=== PATIENT | male | born 1945 | race Caucasian/White ===

== ENCOUNTER 2020-03-11 17:00 | Emergency (ER) | payer MEDICARE, OTHER ==
[2020-03-11] MEDS ORDERED: SODIUM CHLORIDE 0.9% 1,000 ML IV STA (17:22)
--- NOTE | 2020-03-11 17:51 | ED Physician Documentation ---
History of Present Illness - Stated complaint Stated Complaint: RT HAND WEAKNESS - Chief complaint Chief Complaint: Neuro - History obtained from History obtained from: Patient, Family - Additonal information Additional information: Patient comes emergency department complaining of progressive weakness in his fingers over the last several days. He states he started with a mild sensation of numbness in his fourth and fifth right digits but that he then noticed that he could not oppose his fingertips to his thumbs to his thumb without flexing hard at the wrist. He denies any pain in the wrist. He does have some numbness extending over the distal ulna but states that the sense of weakness and numbness and is there. He denies any other focal neurologic deficits. 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 Patient denies any headaches or visual changes. No recent injuries. He does use a walker and is right side dominant. No other complaints at this time. Review of Systems Ten Systems: 10 systems reviewed and negative Constitutional: reports: Reviewed and negative Eyes: reports: Reviewed and negative Ears: reports: Reviewed and negative Nose: reports: Reviewed and negative Throat: reports: Reviewed and negative Cardiac: reports: Reviewed and negative Respiratory: reports: Reviewed and negative GI: reports: Reviewed and negative : reports: Reviewed and negative Skin: reports: Reviewed and negative Musculoskeletal: reports: Reviewed and negative Neurologic: reports: Focal weakness, Numbness Psychiatric: reports: Reviewed and negative Endocrine: reports: Reviewed and negative Immunocompromised: reports: Reviewed and negative PD PAST MEDICAL HISTORY - Past Medical History Cardiovascular: Hypertension, High cholesterol Respiratory: None Endocrine/Autoimmune: None, Type 2 diabetes GI: None : None HEENT: Chronic vision loss, Other Psych: None Musculoskeletal: None Derm: None - 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 HEENT: Other - Present Medications Home Medications: Ambulatory Orders Medication Instructions Recorded Confirmed Atorvastatin Calcium [Lipitor] 20 mg PO DAILY 11/27/13 05/28/14 Cholecalciferol (Vitd3)/Vit K2 [D3 1 ea PO BID 11/27/13 05/28/14 + K2 Dots 1,000 Units Tab] Ferrous Sulfate [Iron Supplement] 325 mg PO DAILY 11/27/13 05/28/14 Lisinopril 10 mg PO DAILY 11/27/13 05/28/14 Metformin HCl 1,000 mg PO BID 11/27/13 05/28/14 Multivitamin [Multi-Vitamin Daily] 1 ea PO BID 11/27/13 05/28/14 [place]-3 Fatty Acids/Fish Oil [Fish 1 each PO BID 11/27/13 05/28/14 Oil Softgel] Saw [place] Fruit/Zinc Picoli 1 each PO BID 11/27/13 05/28/14 [Saw [place] Capsule] - Allergies Allergies/Adverse Reactions: Allergies Allergy/AdvReac Type Severity Reaction Status Date / Time Penicillins Allergy Severe Respiratory Verified 03/11/20 17:03 insect bites AdvReac Mild Itching Uncoded 11/27/13 15:02 PD ED PE NORMAL - Vitals Vital signs reviewed: Yes - General General: Alert and oriented X 3, No acute distress, Well developed/nourished - HEENT HEENT: Atraumatic, PERRL, EOMI, Moist mucous membranes - Neck Neck: Supple, no meningeal sign - Cardiac Cardiac: RRR, No murmur - Respiratory Respiratory: No respiratory distress, Clear bilaterally - Abdomen Abdomen: Soft, Non distended - Back Back: No spinal TTP - Derm Derm: Normal color, Warm and dry, No rash - Extremities Extremities: No deformity, Other (Chronic lower extremity edema Symmetrically) - Neuro Neuro: Alert and oriented X 3, Normal speech, Other (5+ 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 Patient automatically fully flex his wrist to help achieve medical sales representative strength. 5+ pincher strength from thumb to all fingers bilaterally, but weaker on R. Equal and 5+ strength elbow and wrist flexion bilaterally.). 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 (Mild left facial droop.) - Psych Psych: Normal mood, Normal affect Results - Vitals Vitals: Vital Signs - 24 hr 03/11/20 03/11/20 03/11/20 17:04 17:54 18:38 Temperature 37 C Heart Rate 58 L 64 60 Respiratory 18 16 12 Rate Blood Pressure 149/56 H 151/75 H 135/63 H O2 Saturation 98 100 100 Oxygen O2 Source Room air - Labs Labs: Laboratory Tests 03/11/20 03/11/20 03/11/20 17:55 17:55 17:55 WBC 5.4 RBC 4.21 L Hgb 13.3 L Hct 38.9 L MCV 92.4 MCH 31.6 H MCHC 34.2 RDW 13.1 Plt Count 253 MPV 8.8 Neut # (Auto) 4.0 Lymph # (Auto) 0.6 L Charles # (Auto) 0.5 Eos # (Auto) 0.2 Baso # (Auto) 0.0 Absolute Nucleated RBC 0.00 Nucleated RBC % 0.0 PT 11.8 INR 1.1 Sodium 133 L Potassium 4.4 Chloride 100 L Carbon Dioxide 21 Anion Gap 12.0 BUN 98 H* Creatinine 2.5 H Estimated GFR (MDRD) 26 L Glucose 168 H Calcium 9.0 Total Bilirubin 1.0 AST 24 ALT 27 Alkaline Phosphatase 124 H Total Protein 7.4 Albumin 3.2 Globulin 4.2 Albumin/Globulin Ratio 0.8 L Lipase 102 H - Rads (name of study) CT head Radiology: Final report received, EMP read indepedently, See rad report (NAD) PD MEDICAL DECISION MAKING - ED course Complexity details: reviewed results, re-evaluated patient, considered differential, d/w patient, d/w family ED course: Patient was worked up with labs and CT scan of the head. Given the progressive nature of his symptoms over some days, as well as the very sharply demarcated cessation of symptoms from the wrist and proximally, I suspected that it was not a stroke that had caused the patient's symptoms. His work-up was unremarkable in terms of cause of the sx. Pt has been getting lab draws twice weekly to monitor his renal function on diuretic treatment, and will continue to have this monitored on an outpatient basis. The pt is advised to follow up with his PCP regarding the neuropraxia in his hand/fingers. 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 No emergent findings have been found on your labs or CT to explain the weakness in your hand. Most likely, the symptoms are secondary to a nerve compression, possibly from using your walker. Please follow-up with your primary care physician to discuss what can be done to remedy the situation. Please continue your visits with wound care for your lower leg swelling and weeping. Discharge Date/Time: 03/11/20 19:14
[2020-03-11 18:02] LABS: BASOPHILS % (AUTO) 0.6 %; EOSINOPHILS # (AUTO) 0.2 10^3/uL (0.0-0.7); HGB - HEMOGLOBIN 13.3 g/dL (14.0-18.0); LYMPHOCYTES # (AUTO) 0.6 10^3/uL (1.5-3.5); LYMPHOCYTES % (AUTO) 11.6 %; MEAN CORPUSCULAR HEMOGLOBIN 31.6 pg (27.0-31.0); MEAN CORPUSCULAR HGB CONC 34.2 g/dL (32.0-36.0); MEAN CORPUSCULAR VOLUME 92.4 fL (80.0-94.0); MEAN PLATELET VOLUME 8.8 fL (7.4-11.4); MONOCYTES # (AUTO) 0.5 10^3/uL (0.0-1.0); MONOCYTES % (AUTO) 9.4 %; PLT - PLATELET COUNT 253 10^3/uL (130-450); RED BLOOD COUNT 4.21 10^6/uL (4.70-6.10); RED CELL DISTRIBUTION WIDTH 13.1 % (12.0-15.0); WHITE BLOOD COUNT 5.4 x10^3/uL (4.8-10.8)
[2020-03-11 18:08] LABS: INR 1.1 (0.8-1.2); PT - PROTHROMBIN TIME 11.8 secs (9.9-12.6)
[2020-03-11 18:17] LABS: ALBUMIN 3.2 g/dL (3.2-5.5); ALBUMIN/GLOBULIN RATIO 0.8 (1.0-2.2); CREATININE 2.5 mg/dL (0.6-1.2); TOTAL PROTEIN 7.4 g/dL (6.7-8.2)
--- NOTE | 2020-03-11 18:17 | CT Report ---
PROCEDURE: HEAD WO INDICATIONS: R hand weakness TECHNIQUE: Noncontrast 4.5 mm thick angled axial sections acquired from the foramen magnum to the vertex. For r adiation dose reduction, the following was used: automated exposure control, adjustment of mA and/or kV according to patient size. COMPARISON: None. FINDINGS: Image quality: Excellent. CSF spaces: Basal cisterns are patent. No extra-axial fluid collections. Ventricles are normal in size and shape. Brain: No midline shift. No intracranial masses or hemorrhage. Damon-white matter interface is norm al. Skull and face: Calvarium and visualized facial bones are intact, without suspicious lesions. Sinuses: Visualized sinuses and mastoids are clear. IMPRESSION: No significant intracranial abnormality is seen. No intracranial hemorrhage is seen. If there is strong clinical concern for a stroke, please consider a dedicated brain MRI for further e valuation (assuming that there is no contraindication to MRI). Reviewed by: Shaun Infante MD on 03/11/2020 5:15 PM JERAMY Approved by: Shaun Infante MD on 03/11/2020 5:15 PM JERAMY Station ID: [id number]
[2020-03-11 18:39] VITALS: BP 135/63
== END 2020-03-11 19:14 | disposition home or self-care (01) ==
LOC: ED 17:00
DX: S44.92XA Injury of unspecified nerve at shoulder and upper arm level, left arm, initial encounter (principal); X58.XXXA Exposure to other specified factors, initial encounter; I10 Essential (primary) hypertension; E11.9 Type 2 diabetes mellitus without complications; Z79.84 Long term (current) use of oral hypoglycemic drugs
CPT/HCPCS: 36415; 70450; 80053; 83690; 85025; 85610; 99284

== ENCOUNTER 2020-10-13 16:52 | Inpatient (IN) | payer MEDICARE, OTHER ==
[2020-10-13] MEDS ORDERED: VANCOMYCIN INJ 1.25 GM in SODIUM CHLORIDE 0.9% 250 ML IV STA (18:11)
[2020-10-13] MEDS ORDERED: CLINDAMYCIN 900 MG/50 ML 50 ML IV STA (18:11)
[2020-10-13] MEDS ORDERED: MEROPENEM 1 GM in SODIUM CHLORIDE 0.9% MINIBAG 100 ML IV STA (18:11)
[2020-10-13] MEDS ORDERED: diphenhydrAMINE 25 MG CAPSULE PO STA (18:14)
[2020-10-13] MEDS ORDERED: SODIUM CHLORIDE 0.9% 1,000 ML IV STA (18:15)
--- NOTE | 2020-10-13 18:16 | ED Physician Documentation ---
History of Present Illness - Stated complaint Stated Complaint: LT FOOT PX/WEAKNESS/INFECTION - Chief complaint Chief Complaint: Ext Problem - History obtained from History obtained from: Patient, Other ([facility] MD Dr. Elias) - Additonal information Additional information: 75yM with pmh dm2 p/w 2 weeks of ulcer formation to L heel that has progressed to festering, foul smelling purulence with sensation of gas inside the foot. denies fevers. pain is localized to L foot, radiating upward, moderate severity, aching, a/w crackling sensation in the skin and pus. further history limited by patient acuity. Review of Systems Constitutional: reports: Myalgias, Fatigue. denies: Fever Musculoskeletal: reports: Extremity pain Neurologic: reports: Generalized weakness. 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) HEENT: Cataracts, Other - Present Medications Home Medications: Ambulatory Orders Medication Instructions Recorded Confirmed Lisinopril 10 mg PO DAILY 11/27/13 06/10/20 Furosemide [Lasix] 1 - 2 tab PO BID 04/10/20 06/10/20 Gabapentin 300 mg PO BID 04/10/20 06/10/20 traMADol [Ultram] 50 mg PO Q4HR PRN 04/10/20 06/10/20 Acetaminophen [Tylenol] 1 - 2 tab PO PRN PRN 04/17/20 06/10/20 - Allergies Allergies/Adverse Reactions: Allergies Allergy/AdvReac Type Severity Reaction Status Date / Time Penicillins Allergy Severe Respiratory Verified 10/13/20 17:18 insect bites AdvReac Mild Itching Uncoded 10/13/20 17:18 - Social History Does the pt smoke?: No Smoking Status: Never smoker Does the pt drink ETOH?: No Does the pt have substance abuse?: No - Immunizations Immunizations are current?: Yes PD ED PE NORMAL - Vitals Vital signs reviewed: Yes - General General: Alert and oriented X 3, No acute distress, Other (pale appearing) - HEENT HEENT: Atraumatic, PERRL, EOMI - Neck Neck: Supple, no meningeal sign - Cardiac Cardiac: RRR - Respiratory Respiratory: No respiratory distress, Clear bilaterally - Abdomen Abdomen: Non tender, Non distended - Rectal Rectal: Other (necrotizing soft tissue infection of LLE originating from L heel) - Derm Derm: Normal color, Warm and dry, Other (necrotizing soft tissue infection of L foot originating f) - Extremities Extremities: Other (necrotizing soft tissue infection of LLE originating from L heel) - Neuro Neuro: Alert and oriented X 3 - Psych Psych: Normal mood, Normal affect Results - Vitals Vitals: Vital Signs - 24 hr 10/13/20 10/13/20 17:13 20:07 Temperature 36.6 C Heart Rate 73 76 Respiratory 14 18 Rate Blood Pressure 116/53 L O2 Saturation 99 99 Oxygen O2 Source Room air - Labs Labs: Laboratory Tests 10/13/20 10/13/20 10/13/20 18:42 18:42 18:42 WBC 40.8 H* RBC 3.61 L Hgb 10.8 L Hct 31.8 L MCV 88.1 MCH 29.9 MCHC 34.0 RDW 12.9 Plt Count 390 MPV 9.1 Neut # (Auto) Not Reportable Lymph # (Auto) Not Reportable [place] # (Auto) Not Reportable Eos # (Auto) Not Reportable Baso # (Auto) Not Reportable Absolute Nucleated RBC Not Reportable Total Counted 100 Band Neuts % (Manual) 16 H Abnorm Lymph % (Manual) 0 Nucleated RBC % Not Reportable Neutrophils # (Manual) 38.8 H Lymphocytes # (Manual) 0.4 L Monocytes # (Manual) 1.2 H Eosinophils # (Manual) 0.4 Basophils # (Manual) 0.0 Differential Comment MANUAL DIFFERENTIAL Platelet Estimate NORMAL (130-450,000) Platelet Morphology NORMAL APPEARANCE RBC Morph Micro Appear NORMAL APPEARANCE ESR 69 H Sodium 118 L* Potassium 4.2 Chloride 80 L* Carbon Dioxide 27 Anion Gap 11.0 BUN 56 H Creatinine 2.2 H Estimated GFR (MDRD) 29 L Glucose 752 H* Lactic Acid Calcium 9.0 Total Bilirubin 0.8 AST 18 ALT 17 Alkaline Phosphatase 227 H C-Reactive Protein 33.8 H Total Protein 7.3 Albumin 2.4 L Globulin 4.9 H Albumin/Globulin Ratio 0.5 L Nasal Adenovirus (PCR) Nasal B. parapertussis DNA (PCR) Nasal Coronavir 229E PCR Nasal Coronavir HKU1 PCR Nasal Coronavir NL63 PCR Nasal Coronavir OC43 PCR Nasal Enterovir/Rhinovir PCR Nasal Influenza B PCR Nasal Influenza A PCR Nasal Parainfluen 1 PCR Nasal Parainfluen 2 PCR Nasal Parainfluen 3 PCR Nasal Parainfluen 4 PCR Nasal RSV (PCR) Nasal B.pertussis DNA PCR Nasal C.pneumoniae (PCR) Fabian Human Metapneumo PCR Nasal M.pneumoniae (PCR) Nasal SARS-CoV-2 (PCR) Serum Ketones 10/13/20 10/13/20 10/13/20 18:42 18:42 19:45 WBC RBC Hgb Hct MCV MCH MCHC RDW Plt Count MPV Neut # (Auto) Lymph # (Auto) [place] # (Auto) Eos # (Auto) Baso # (Auto) Absolute Nucleated RBC Total Counted Band Neuts % (Manual) Abnorm Lymph % (Manual) Nucleated RBC % Neutrophils # (Manual) Lymphocytes # (Manual) Monocytes # (Manual) Eosinophils # (Manual) Basophils # (Manual) Differential Comment Platelet Estimate Platelet Morphology RBC Morph Micro Appear ESR Sodium Potassium Chloride Carbon Dioxide Anion Gap BUN Creatinine Estimated GFR (MDRD) Glucose Lactic Acid 2.1 Calcium Total Bilirubin AST ALT Alkaline Phosphatase C-Reactive Protein Total Protein Albumin Globulin Albumin/Globulin Ratio Nasal Adenovirus (PCR) NOT DETECTED Nasal B. parapertussis DNA (PCR) NOT DETECTED Nasal Coronavir 229E PCR NOT DETECTED Nasal Coronavir HKU1 PCR NOT DETECTED Nasal Coronavir NL63 PCR NOT DETECTED Nasal Coronavir OC43 PCR NOT DETECTED Nasal Enterovir/Rhinovir PCR NOT DETECTED Nasal Influenza B PCR NOT DETECTED Nasal Influenza A PCR NOT DETECTED Nasal Parainfluen 1 PCR NOT DETECTED Nasal Parainfluen 2 PCR NOT DETECTED Nasal Parainfluen 3 PCR NOT DETECTED Nasal Parainfluen 4 PCR NOT DETECTED Nasal RSV (PCR) NOT DETECTED Nasal B.pertussis DNA PCR NOT DETECTED Nasal C.pneumoniae (PCR) NOT DETECTED Fabian Human Metapneumo PCR NOT DETECTED Nasal M.pneumoniae (PCR) NOT DETECTED Nasal SARS-CoV-2 (PCR) NOT DETECTED Serum Ketones NEGATIVE Procedures - General procedure General procedure: peripheral IV placed using ultrasound guidance in R AC on first attempt without complication. flushing well. ebl minimal. patient tolerated well. PD MEDICAL DECISION MAKING - ED course ED course: Dr. Elais, [facility] called to discuss with me. stating she was sending a gentleman with wet gangrene to our hospital from clinic. I declined to accept in transfer, informing her that we had a medical staff meeting confirming we cannot care for nec fasc/wet gangrene here. I discussed with our hospitalist Dr. Gatica who states that we cannot care for him here and he should not come to our hospital. I relayed this to Dr. Elias who said she would contact the family who are already on their way, and have them diverted to a hospital with full capabilities to manage his condition. 15 minutes later he arrived here. I immediately ordered IV antibiotics, called [facility] and was declined for transfer because they are incapable of caring for nec fasc. Called [place] and d/w Dr. Chaparro Gordon who stated that because the patient does not have septic vital signs he does not need to go to the OR immediately. He requested that we order a CT despite XR read of nec fasc. d/w Dr. Cook, our surgeon here and she states she can take him to the OR if we are not able to coordinate transfer to [facility]. d/w [facility] Dr. Carlos Enrique Pulido who states he cannot accept in transfer due to no beds. [place] [facility] [place] [facility] and they stated their medical receptionist biller will not allow transfer for nec fasc and we need to call somewhere else. Dr. Cook is at the bedside now (9:15pm). She requested we call . Will do that now. Also will try [facility] we were told they had no beds but [place] [facility] if they couldn't find anything. 9:30pm - Dr. Cook will take him to OR now and transfer later. - Critical Care Time(min): 120 Time Includes: Direct patient care, Reassess patient, Document care, Coordinate care, Medical consult Procedures included in critical care time: Blood draw Procedures excluded from critical care time: Central IV Departure - Departure Disposition: 66 [facility] DC/Xfer Clinical Impression: Necrotizing fasciitis Condition: Serious Discharge Date/Time: 10/13/20 22:36
[2020-10-13] MEDS ORDERED: VANCOMYCIN INJ 2 GM in SODIUM CHLORIDE 0.9% 500 ML IV STA (18:22)
--- NOTE | 2020-10-13 18:55 | XRAY Report ---
PROCEDURE: Foot 2 View LT INDICATIONS: L heel ulcer TECHNIQUE: 2 views of the foot were acquired. COMPARISON: None FINDINGS: Large amount of soft tissue gas and soft tissue swelling noted throughout the foot particul rod over the heel extending into the lower calf. Diffuse atherosclerotic vascular calcification noted as well. Forefoot osteopenia noted without obvio us lytic lesion. No radiopaque foreign body. A large Achilles tendon enthesophyte present. IMPRESSION: 1. Large amount of soft tissue gas and soft tissue swelling predominantly in the hindfoot extending i nto the calf raises the possibility of necrotizing fasciitis. 2. Small vessel diffuse atherosclerotic vascular calcification Findings were discussed with Dr. Looney at 5:53 PM 10/13/2020 Reviewed by: Jaydon Galarza MD on 10/13/2020 5:54 PM JERAMY Approved by: Jaydon Galarza MD on 10/13/2020 5:54 PM JERAMY Station ID: [id number]
[2020-10-13 19:00] LABS: LACTIC ACID, VENOUS 2.1 mmol/L (0.5-2.2)
[2020-10-13 19:01] LABS: BASOPHILS % (AUTO) 0.4 %; EOSINOPHILS % (AUTO) 0.3 %; HCT - HEMATOCRIT 31.8 % (42.0-52.0); HGB - HEMOGLOBIN 10.8 g/dL (14.0-18.0); LYMPHOCYTES % (AUTO) 1.2 %; MEAN CORPUSCULAR HEMOGLOBIN 29.9 pg (27.0-31.0); MEAN CORPUSCULAR VOLUME 88.1 fL (80.0-94.0); MEAN PLATELET VOLUME 9.1 fL (7.4-11.4); MONOCYTES % (AUTO) 1.9 %; NEUTROPHILS % (AUTO) 92.8 %; PLT - PLATELET COUNT 390 10^3/uL (130-450); RED BLOOD COUNT 3.61 10^6/uL (4.70-6.10); RED CELL DISTRIBUTION WIDTH 12.9 % (12.0-15.0)
[2020-10-13 19:05] LABS: WHITE BLOOD COUNT 40.8 x10^3/uL (4.8-10.8)
[2020-10-13 19:06] LABS: ABNORMAL LYMPHS % (MANUAL) 0 %
[2020-10-13 19:23] LABS: ALBUMIN 2.4 g/dL (3.2-5.5); ALBUMIN/GLOBULIN RATIO 0.5 (1.0-2.2); BILIRUBIN,TOTAL 0.8 mg/dL (0.2-1.0); CREATININE 2.2 mg/dL (0.6-1.2); CRP - C-REACTIVE PROTEIN 33.8 mg/dL (0-1.0); POTASSIUM 4.2 mmol/L (3.5-5.0); TOTAL PROTEIN 7.3 g/dL (6.7-8.2)
[2020-10-13 19:27] LABS: BAND NEUTROPHILS % (MANUAL) 16 %; DIFFERENTIAL COMMENT MANUAL DIFFERENTIAL; EOSINOPHILS # (MANUAL) 0.4 10^3/uL (0-0.7); LYMPHOCYTES # (MANUAL) 0.4 10^3/uL (1.5-3.5); LYMPHOCYTES % (MANUAL) 1 %; MONOCYTES # (MANUAL) 1.2 10^3/uL (0.0-1.0); NEUTROPHILS # (MANUAL) 38.8 10^3/uL (1.5-6.6); PLATELET ESTIMATE, MANUAL NORMAL (130-450,000) (NORMAL); PLATELET MORPHOLOGY NORMAL APPEARANCE (NORMAL); RBC MORPHOLOGY (MULTIPLE) NORMAL APPEARANCE (NORMAL)
[2020-10-13] MEDS ORDERED: INSULIN REGULAR HUMAN 100 UNIT in SODIUM CHLORIDE 0.9% 100ML 99 ML IV STA (19:27)
[2020-10-13] MEDS ORDERED: INSULIN REGULAR HUMAN 100 UNIT/1 ML 10 ML MDV IVP STA (19:27)
[2020-10-13] MEDS ORDERED: POTASSIUM CHLOR 10 MEQ/100 ML 10 MEQ/100 ML BAG IV STA (19:28)
[2020-10-13] MEDS ORDERED: INSULIN REGULAR HUMAN 100 UNIT/1 ML 10 ML MDV ONE (19:59)
[2020-10-13 20:57] LABS: B. PARAPERTUSSIS- RESP PCR PAN NOT DETECTED; B. PERTUSSIS- RESP PCR PANEL NOT DETECTED; C. PNEUMONIAE- RESP PCR PANEL NOT DETECTED; CORONAVIRUS 229E-RESP PCR NOT DETECTED; CORONAVIRUS HKU1-RESP PCR NOT DETECTED; CORONAVIRUS NL63-RESP PCR NOT DETECTED; CORONAVIRUS OC43-RESP PCR NOT DETECTED; HUMAN METAPNEUMOVIRUS NOT DETECTED; INFLUENZA A- RESP PCR PANEL NOT DETECTED; INFLUENZA B - RESP PCR PANEL NOT DETECTED; M. PNEUMONIAE- RESP PCR PANEL NOT DETECTED; PARAINFLUENZA VIRUS 1 NOT DETECTED; PARAINFLUENZA VIRUS 2 NOT DETECTED; PARAINFLUENZA VIRUS 3 NOT DETECTED; PARAINFLUENZA VIRUS 4 NOT DETECTED; RHINOVIRUS/ENTEROVIRUS NOT DETECTED; RSV- RESP PCR PANEL NOT DETECTED; SARS-CoV-2 -RESP PCR PANEL NOT DETECTED
--- NOTE | 2020-10-13 21:35 | XRAY Report ---
PROCEDURE: Chest for Line Placement INDICATIONS: Line placement TECHNIQUE: One view of the chest was acquired. COMPARISON: None FINDINGS: Surgical changes and devices: Right-sided central venous catheter is present distal tip projecting ov er the proximal SVC. Lungs and pleura: There is blunting of the costophrenic angles bilaterally with mild bilateral effusi ons, right greater than left. Mediastinum: Mediastinal contours appear normal. Heart size is normal. Bones and chest wall: No suspicious bony lesions. Overlying soft tissues appear unremarkable. IMPRESSION: Mild bilateral effusions. Underlying areas of pneumonia and/or atelectasis cannot be excluded. Recomm end interval follow-up to document resolution and include presence of underlying mass lesion potentia lly malignant etiology. Reviewed by: Elenita Son MD on 10/13/2020 9:34 PM PDT Approved by: Elneita Son MD on 10/13/2020 9:34 PM PDT Station ID: [id number]
[2020-10-13] MEDS: NS W/20 MEQ KCL 1,000 ML IV SCH (21:40)
--- NOTE | 2020-10-13 21:58 | HISTORY & PHYSICAL EXAMINATION ---
HPI - Admitted From Admitted from: ED - History Obtained From Records Reviewed: Old records reviewed History obtained from: Patient Exam limitations: Other - History of Present Illness Pain/Problem Location Description: Left lower extremity Severity at the worst: reports: Moderate Pain Quality: reports: Aching, Throbbing Context-Pain started w/: reports: Rest Timing: reports: Gradual onset Duration: reports: Days: Worsened by: reports: Movement, Palpation HPI Comment/Other: Unfortunate 75-year-old gentleman with a history of type 2 diabetes, peripheral neuropathy, vision loss, and renal insufficiency who has a history of nonhealing ulcers of bilateral lower extremities. He was seen and cared for in our wound clinic beginning this past March and was discharged from wound clinic in June.He began having increased difficulty sometime in late September and contacted the wound center but they were not able to contact him back after multiple attempts.He began to have increasing pain in his left leg and felt generally ill. He presented to the emergency room this evening and was noted to have a blood sugar greater than 700, deranged electrolytes, and a very foul- smelling left lower extremity.X-rays of the left lower extremity reveal gas in the foot and lower leg consistent with necrotizing fasciitis. Both medical and surgical services here at our hospital including myself have recommended transfer to a higher level of care. Unfortunately we have not been able to find an open bed at a more capable treatment facility.Mr. Mg is awake though lethargic. He is complaining of left lower extremity pain he is quite cooperative but is having difficulty remembering things.As far as he can remembe r, he has felt bad for several days but he does not know quite how long that is. He adds that he has felt very weak. 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: Other (Vasectomy) HEENT: positive: Cataracts, Other Other past surgical history: Surgical debridement of bilateral heels in the last 6 months Social & Family Hx - Social History Does the pt smoke?: No Smoking Status: Never smoker Does the pt drink ETOH?: No Does the pt have substance abuse?: No Meds/Allgy - Home Medications Home Medications: Ambulatory Orders Medication Instructions Recorded Confirmed Lisinopril 10 mg PO DAILY 11/27/13 06/10/20 Furosemide [Lasix] 1 - 2 tab PO BID 04/10/20 06/10/20 Gabapentin 300 mg PO BID 04/10/20 06/10/20 traMADol [Ultram] 50 mg PO Q4HR PRN 04/10/20 06/10/20 Acetaminophen [Tylenol] 1 - 2 tab PO PRN PRN 04/17/20 06/10/20 - Allergies Allergies/Adverse Reactions: Allergies Allergy/AdvReac Type Severity Reaction Status Date / Time Penicillins Allergy Severe Respiratory Verified 10/13/20 17:18 insect bites AdvReac Mild Itching Uncoded 10/13/20 17:18 Review of Systems - Constitutional Constitutional: reports: Fatigue, Malaise, Weakness, Poor appetite, Diaphoresis - Eyes Eyes: reports: Vision loss - Ears, Nose & Throat Ears, Nose & Throat: reports: Hearing loss, Vertigo. denies: Tinnitus - Cardiovascular Cariovascular: reports: Edema, Lightheadedness, Exertional dyspnea. denies: Palpitations, Chest pain - Gastrointestinal Gastrointestinal: reports: Nausea. denies: Vomiting - Genitourinary Genitourinary: reports: Other (He has noted dark urine). denies: Dysuria, Frequency, Urgency, Hematuria - Musculoskeletal Musculoskeletal: reports: Other (Left foot and leg pain) - Neurological Neurological: reports: General weakness Exam - Vital Signs Reviewed Vital Signs: Yes Vital Signs: Vital Signs x48h Temp Pulse Resp BP Pulse Ox 10/13/20 20:07 76 18 99 10/13/20 17:13 36.6 C 73 14 116/53 L 99 - Physical Exam General Appearance: positive: Mild distress, Lethargic Eyes Bilateral: positive: Normal inspection, No scleral icterus ENT: positive: ENT inspection nml. negative: Oral lesions Neck: positive: Nml inspection, Trachea midline Respiratory: positive: Chest non-tender, No respiratory distress, Breath sounds nml Cardiovascular: positive: Regular rate & rhythm Peripheral Pulses: positive: 0 Abdomen: positive: Non-tender, Nml bowel sounds Skin: positive: No rash Neurologic/Psychiatric: positive: Oriented x3 Results - Lab Results Fish Bones: 10/13/20 18:42 10/13/20 18:42 Other Lab Results: Lab Results x24hrs 10/13/20 10/13/20 10/13/20 Range/Units 19:45 18:42 18:42 WBC (4.8-10.8) x10^3/uL RBC (4.70-6.10) 10^6/uL Hgb (14.0-18.0) g/dL Hct (42.0-52.0) % MCV (80.0-94.0) fL MCH (27.0-31.0) pg MCHC (32.0-36.0) g/dL RDW (12.0-15.0) % Plt Count (130-450) 10^3/uL MPV (7.4-11.4) fL Neut # (Auto) Lymph # (Auto) [place] # (Auto) Eos # (Auto) Baso # (Auto) Absolute Nucleated RBC Total Counted Band Neuts % (Manual) (0 - 10) % Abnorm Lymph % (Manual) % Nucleated RBC % Neutrophils # (Manual) (1.5-6.6) 10^3/uL Lymphocytes # (Manual) (1.5-3.5) 10^3/uL Monocytes # (Manual) (0.0-1.0) 10^3/uL Eosinophils # (Manual) (0-0.7) 10^3/uL Basophils # (Manual) (0-0.1) 10^3/uL Differential Comment Platelet Estimate (NORMAL) Platelet Morphology (NORMAL) RBC Morph Micro Appear (NORMAL) ESR (0-20) mm/Hr Sodium (135-145) mmol/L Potassium (3.5-5.0) mmol/L Chloride (101-111) mmol/L Carbon Dioxide (21-32) mmol/L Anion Gap (6-13) BUN (6-20) mg/dL Creatinine (0.6-1.2) mg/dL Estimated GFR (MDRD) (>89) Glucose (70-100) mg/dL Lactic Acid 2.1 (0.5-2.2) mmol/L Calcium (8.5-10.3) mg/dL Total Bilirubin (0.2-1.0) mg/dL AST (10-42) IU/L ALT (10-60) IU/L Alkaline Phosphatase (42-121) IU/L C-Reactive Protein (0-1.0) mg/dL Total Protein (6.7-8.2) g/dL Albumin (3.2-5.5) g/dL Globulin (2.1-4.2) g/dL Albumin/Globulin Ratio (1.0-2.2) Nasal Adenovirus (PCR) NOT DETECTED Nasal B. parapertussis DNA (PCR) NOT DETECTED Nasal Coronavir 229E PCR NOT DETECTED Nasal Coronavir HKU1 PCR NOT DETECTED Nasal Coronavir NL63 PCR NOT DETECTED Nasal Coronavir OC43 PCR NOT DETECTED Nasal Enterovir/Rhinovir PCR NOT DETECTED Nasal Influenza B PCR NOT DETECTED Nasal Influenza A PCR NOT DETECTED Nasal Parainfluen 1 PCR NOT DETECTED Nasal Parainfluen 2 PCR NOT DETECTED Nasal Parainfluen 3 PCR NOT DETECTED Nasal Parainfluen 4 PCR NOT DETECTED Nasal RSV (PCR) NOT DETECTED Nasal B.pertussis DNA PCR NOT DETECTED Nasal C.pneumoniae (PCR) NOT DETECTED Fabian Human Metapneumo PCR NOT DETECTED Nasal M.pneumoniae (PCR) NOT DETECTED Nasal SARS-CoV-2 (PCR) NOT DETECTED Serum Ketones NEGATIVE (NEGATIVE) 10/13/20 10/13/20 10/13/20 Range/Units 18:42 18:42 18:42 WBC 40.8 H* (4.8-10.8) x10^3/uL RBC 3.61 L (4.70-6.10) 10^6/uL Hgb 10.8 L (14.0-18.0) g/dL Hct 31.8 L (42.0-52.0) % MCV 88.1 (80.0-94.0) fL MCH 29.9 (27.0-31.0) pg MCHC 34.0 (32.0-36.0) g/dL RDW 12.9 (12.0-15.0) % Plt Count 390 (130-450) 10^3/uL MPV 9.1 (7.4-11.4) fL Neut # (Auto) Not Reportable Lymph # (Auto) Not Reportable [place] # (Auto) Not Reportable Eos # (Auto) Not Reportable Baso # (Auto) Not Reportable Absolute Nucleated RBC Not Reportable Total Counted 100 Band Neuts % (Manual) 16 H (0 - 10) % Abnorm Lymph % (Manual) 0 % Nucleated RBC % Not Reportable Neutrophils # (Manual) 38.8 H (1.5-6.6) 10^3/uL Lymphocytes # (Manual) 0.4 L (1.5-3.5) 10^3/uL Monocytes # (Manual) 1.2 H (0.0-1.0) 10^3/uL Eosinophils # (Manual) 0.4 (0-0.7) 10^3/uL Basophils # (Manual) 0.0 (0-0.1) 10^3/uL Differential Comment MANUAL DIFFERENTIAL Platelet Estimate NORMAL (130-450,000) (NORMAL) Platelet Morphology NORMAL APPEARANCE (NORMAL) RBC Morph Micro Appear NORMAL APPEARANCE (NORMAL) ESR 69 H (0-20) mm/Hr Sodium 118 L* (135-145) mmol/L Potassium 4.2 (3.5-5.0) mmol/L Chloride 80 L* (101-111) mmol/L Carbon Dioxide 27 (21-32) mmol/L Anion Gap 11.0 (6-13) BUN 56 H (6-20) mg/dL Creatinine 2.2 H (0.6-1.2) mg/dL Estimated GFR (MDRD) 29 L (>89) Glucose 752 H* (70-100) mg/dL Lactic Acid (0.5-2.2) mmol/L Calcium 9.0 (8.5-10.3) mg/dL Total Bilirubin 0.8 (0.2-1.0) mg/dL AST 18 (10-42) IU/L ALT 17 (10-60) IU/L Alkaline Phosphatase 227 H (42-121) IU/L C-Reactive Protein 33.8 H (0-1.0) mg/dL Total Protein 7.3 (6.7-8.2) g/dL Albumin 2.4 L (3.2-5.5) g/dL Globulin 4.9 H (2.1-4.2) g/dL Albumin/Globulin Ratio 0.5 L (1.0-2.2) Nasal Adenovirus (PCR) Nasal B. parapertussis DNA (PCR) Nasal Coronavir 229E PCR Nasal Coronavir HKU1 PCR Nasal Coronavir NL63 PCR Nasal Coronavir OC43 PCR Nasal Enterovir/Rhinovir PCR Nasal Influenza B PCR Nasal Influenza A PCR Nasal Parainfluen 1 PCR Nasal Parainfluen 2 PCR Nasal Parainfluen 3 PCR Nasal Parainfluen 4 PCR Nasal RSV (PCR) Nasal B.pertussis DNA PCR Nasal C.pneumoniae (PCR) Fabian Human Metapneumo PCR Nasal M.pneumoniae (PCR) Nasal SARS-CoV-2 (PCR) Serum Ketones (NEGATIVE) - Diagnostic Imaging Results Diagnostic Imaging Results Comments: IMPRESSION: 1. Large amount of soft tissue gas and soft tissue swelling predominantly in the hindfoot extending into the calf raises the possibility of necrotizing fasciitis. 2. Small vessel diffuse atherosclerotic vascular calcification Impression/Plan - Problem List Problem List: I have recommended immediate transfer to the operating room for incision and debridement of the left lower extremity.We will plan for transfer when he is medically stable for continued monitoring, medical management, repeat debridement and likely definitive amputation eventually. I discussed the risks of the procedure with the patient as well as the risk of this disease process. The patient has expressed understanding of the situation and a desire to continue to the operating room. The case and recommendations were also discussed with the patient's son.
[2020-10-13] MEDS ORDERED: oxyCODONE 5 MG TABLET PO PRN ×2 (22:09)
[2020-10-13] MEDS ORDERED: ONDANSETRON 4 MG/2 ML VIAL IVP PRN (22:09)
[2020-10-13] MEDS ORDERED: ONDANSETRON ODT 4 MG TABLET TL PRN (22:09)
[2020-10-13] MEDS ORDERED: ACETAMINOPHEN 325 MG TABLET PO PRN (22:09)
[2020-10-13] MEDS ORDERED: SODIUM CHLORIDE FLUSH 0.9% 10 ML SYRINGE IVP PRN (22:09)
--- NOTE | 2020-10-13 22:12 | ANESTHESIA ---
Pre-Anesthesia VS, & Labs - Diagnosis diabetic foot ulcer - Procedure debridement left foot ulcer Vital Signs: Temp Pulse Resp BP Pulse Ox 36.6 C 73 18 173/70 H 99 10/13/20 17:13 10/13/20 22:00 10/13/20 22:00 10/13/20 22:00 10/13/20 22:00 Height: 6 ft Weight (kg): 92.986 kg Body Mass Index: 27.8 BMI Classification: Overweight - NPO >8 hours - Lab Results Current Lab Results: Laboratory Tests 10/13/20 18:42: Serum Ketones NEGATIVE 10/13/20 18:42: Lactic Acid 2.1 10/13/20 18:42: Sodium 118 L*, Potassium 4.2, Chloride 80 L*, Carbon Dioxide 27, Anion Gap 11.0, BUN 56 H, Creatinine 2.2 H, Estimated GFR (MDRD) 29 L, Glucose 752 H*, Calcium 9.0, Total Bilirubin 0.8, AST 18, ALT 17, Alkaline Phosphatase 227 H, C-Reactive Protein 33.8 H, Total Protein 7.3, Albumin 2.4 L, Globulin 4.9 H, Albumin/Globulin Ratio 0.5 L 10/13/20 18:42: ESR 69 H 10/13/20 18:42: WBC 40.8 H*, RBC 3.61 L, Hgb 10.8 L, Hct 31.8 L, MCV 88.1, MCH 29.9, MCHC 34.0, RDW 12.9, Plt Count 390, MPV 9.1, Neut # (Auto) Not Reportable, Lymph # (Auto) Not Reportable, [place] # (Auto) Not Reportable, Eos # (Auto) Not Reportable, Baso # (Auto) Not Reportable, Absolute Nucleated RBC Not Reportable, Total Counted 100, Band Neuts % (Manual) 16 H, Abnorm Lymph % (Manual) 0, Nucleated RBC % Not Reportable, Neutrophils # (Manual) 38.8 H, Lymphocytes # (Manual) 0.4 L, Monocytes # (Manual) 1.2 H, Eosinophils # (Manual) 0.4, Basophils # (Manual) 0.0, Differential Comment MANUAL DIFFERENTIAL, Platelet Estimate NORMAL (130-450,000), Platelet Morphology NORMAL APPEARANCE, RBC Morph Micro Appear NORMAL APPEARANCE Fish Bones: 10/13/20 18:42 10/13/20 18:42 Home Medications and Allergies Active Medications Insulin Human Regular 100 unit (/ Sodium Chloride) 100 mls @ 9.299 mls/hr IV TITR STA; Protocol Stop: 10/14/20 06:12 Last Admin: 10/13/20 21:30 Dose: 0.1 unit/kg/hr, 9.299 mls/hr Documented by: Potassium Chloride/Sodium Chloride (Normal Saline 0.9% W/20 Meq Kcl) 1,000 mls @ 125 mls/hr IV .Q8H JUSTIN Last Admin: 10/13/20 21:40 Dose: Not Given Documented by: Lisinopril 10 mg PO DAILY 11/27/13 Furosemide [Lasix] 1 - 2 tab PO BID 04/10/20 Gabapentin 300 mg PO BID 04/10/20 traMADol [Ultram] 50 mg PO Q4HR PRN 04/10/20 Acetaminophen [Tylenol] 1 - 2 tab PO PRN PRN 04/17/20 Allergies/Adverse Reactions: Allergies Allergy/AdvReac Type Severity Reaction Status Date / Time Penicillins Allergy Severe Respiratory Verified 10/13/20 17:18 insect bites AdvReac Mild Itching Uncoded 10/13/20 17:18 Anes History & Medical History - Anesthetic History Anesthesia Complications: reports: No previous complications - Medical History Cardiovascular: reports: Hypertension, High cholesterol Pulmonary: reports: None Gastrointestinal: reports: None Urinary: reports: None Neuro: reports: None, Other (Zhu's Palsy ) Musculoskeletal: reports: None Endocrine/Autoimmune: reports: None, Type 2 diabetes Blood Disorders: reports: None Skin: reports: None Smoking Status: Never smoker - Surgical History Eyes Ears Nose Throat (EENT): reports: Cataracts, Other Gynecologic: reports: Other (Vasectomy) Other Past Surgical History: Surgical debridement of bilateral heels in the last 6 months Exam General: Alert, Oriented x3 Dental: WNL Mouth Opening: Greater than 4 Fingerbreadths Neck Mobility: Normal Mallampati classification: III Thyromental Distance: greater than 6 cm Respiratory: Lungs clear Cardiovascular: Regular rate, Normal S1, Normal S2, Other (murmur) Plan Anesthesia Type: General Consent for Procedure(s) Verified and Reviewed: Yes Code Status: Attempt Resuscitation ASA classification: 4-Incapacitating disease Is this case an emergency?: Yes
[2020-10-13] MEDS ORDERED: KETAMINE 500 MG/10 ML VIAL ONE (22:17)
[2020-10-13] MEDS ORDERED: fentaNYL 100 MCG/2 ML VIAL ONE (22:17)
[2020-10-13] MEDS ORDERED: LIDOCAINE-MPF 2% 5 ML VIAL ONE (22:18)
[2020-10-13] MEDS ORDERED: PROPOFOL 200 MG/20 ML VIAL IVP ONE (22:18)
[2020-10-13] MEDS ORDERED: ROCURONIUM 50 MG/5 ML VIAL ONE (22:18)
[2020-10-13] MEDS ORDERED: HYDROmorphone 2 MG/ML VIAL IVP PRN (22:21)
[2020-10-13] MEDS ORDERED: LACTATED RINGERS 1,000 ML IV SCH (23:00)
--- NOTE | 2020-10-13 23:07 | ANESTHESIA PROCEDURE NOTE ---
Anesth Central Line Template - Central Line Central Line Preparation: Consent Obtained Central line location: Right IJ Central line type: Triple lumen Central line catheter tip site resides: Superior vena cava (SVC)
[2020-10-13] MEDS ORDERED: PROPOFOL 500 MG/50 ML 500 MG/50 ML VIAL IV SCH (23:45)
--- NOTE | 2020-10-13 23:51 | OPERATIVE REPORT ---
Operative Report - General Admit Date: 10/13/20 Procedure Date: 10/13/20 Planned Procedure: Incision and debridement of left lower extremity Pre-Op Diagnosis: Necrotizing fasciitis of the left lower extremity Procedure Performed: Incision and debridement of left lower extremity Post Op Diagnosis: Necrotizing fasciitis of the left lower extremity - Procedure Note Primary Surgeon: Joyce Anesthesia Provider: ANITA Moralez Anesthesia Technique: General ET tube Pathology: Cultures were submitted Estimated Blood Loss (mL): 50 Findings: 1. David and full-thickness necrosis of the plantar surface of the left foot and the majority of the medial compartment of the lower portion of the leg. 2. Tense gaseous distention of the medial aspect of the left lower extremity up to the lower border of the gastrocnemius muscle 3.No david necrosis or obvious liquefaction of the dorsal surface of the foot or leg. Complications: None apparent - Other Other Information/Narrative: After obtaining informed consent, the patient is brought to the operating room and placed in the supine position on the operating table. Following successful induction of general endotracheal anesthesia, appropriate padding of all bony prominences, and placement appropriate monitors, the left leg was prepped and draped in the standard surgical fashion. A timeout was held per scope protocol. All elements of surgical safety checklist were followed before, during, and after the procedure. We began the procedure at the level of the heel using a 10 blade scalpel removing all of the frankly necrotic material.It became obvious with the first incision that there was significant liquefaction necrosis extending anteriorly.Debridement was continued over the plantar surface of the foot to include essentially the entire covering of the calcaneus.Proximally, liquefaction extended up to the lower border of the gastrocnemius muscle.Purulent drainage ascended higher in the compartment but no david necrosis. All frankly necrotic tissue was debrided sharply.The wound was then cleaned with pulse lavage using 3 L of saline solution.The wound was then checked for hemostasis.This left a large defect involving the entire medial aspect of the left lower extremity as well as the plantar surface of the left foot.This entire area was packed with Betadine soaked Kerlix gauze and wrapped with dry dressings.All sponge, needle, and instrument counts were correct at the conclusion of the case.The patient was taken to the surgical intensive care unit and remained intubated.The plan is for transfer to a tertiary care facility this evening.
[2020-10-14] MEDS ORDERED: SODIUM CHLORIDE FLUSH 0.9% 10 ML SYRINGE IVP PRN
--- NOTE | 2020-10-14 00:12 | CONSULTATION NOTE ---
Referring Provider Name of Referring Provider:: Dr. Patricia Looney Consult Date: 10/13/20 Chief Complaint - Chief Complaint Chief Complaint: Leg redness History of Present Illness - Admitted From Admitted From:: Home - History Obtained From Records Reviewed: Yes History obtained from: Patient, ER Physician, EMR Exam Limitations: History limited due to acuity. - History of Present Illness HPI Comment/Other: This is a 75-year-old male with a past medical history significant for type 2 diabetes mellitus, chronic wound over the left heel, CKD stage III who presents today complaining of worsening leg redness. He states it has been present for over 12 months and he was seeing wound care beginning fall of last year up until June when he was discharged from the wound care clinic. He states the wound has been doing well up until the past few days when he noticed it was starting to become necrotic and foul-smelling. He then noticed that he had redness going up his left foot. He states he does not have any fevers or chills but reports feeling ill and weak overall. In the emergency department, he was found to have a white count of 40,000 with 16% bands. X-ray of the left foot revealed gas in the foot and lower leg concerning for necrotizing fasciitis. He was given clindamycin, meropenem, vancomycin in the emergency department. The plan was to transfer to higher level of care but due to lack of bed availability, he will be taken to the OR here at our facility by general surgery with a plan to hopefully transfer postoperatively to [facility]. I did discuss goals of care with the patient and he would like to be a full code. 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 Living arrangement: At home Living Situation: With family, Other (SonAron- caregiver) Social History Notes: He has never smoked and does not drink alcohol. His son, Shadi, lives nearby. - Substance History Use: Uses substance without health or social issues: NONE Meds/Allgy - Home Medications Home Medications: Ambulatory Orders Medication Instructions Recorded Confirmed Lisinopril 10 mg PO DAILY 11/27/13 06/10/20 Furosemide [Lasix] 1 - 2 tab PO BID 04/10/20 06/10/20 Gabapentin 300 mg PO BID 04/10/20 06/10/20 traMADol [Ultram] 50 mg PO Q4HR PRN 04/10/20 06/10/20 Acetaminophen [Tylenol] 1 - 2 tab PO PRN PRN 04/17/20 06/10/20 - Allergies Allergies/Adverse Reactions: Allergies Allergy/AdvReac Type Severity Reaction Status Date / Time Penicillins Allergy Severe Respiratory Verified 10/13/20 17:18 insect bites AdvReac Mild Itching Uncoded 10/13/20 17:18 Review of Systems - Constitutional Constitutional: reports: Fatigue, Malaise, Weakness. denies: Fever, Chills - Cardiovascular Cariovascular: reports: Edema. denies: Chest pain, Exertional dyspnea, Decr. exercise tolerance - Respiratory Respiratory: denies: SOB at rest, SOB with exertion - Gastrointestinal Gastrointestinal: denies: Abdominal pain, Nausea, Vomiting - Genitourinary Genitourinary: denies: Dysuria, Frequency - Musculoskeletal Musculoskeletal: reports: Joint pain, Joint swelling - Integumentary Integumentary: reports: Lesions, Pigment changes - All Other Systems All Other Systems: reports: Other (Review of systems is limited given his acuity.) Exam - Vital Signs Reviewed Vital Signs: Yes Vital Signs: Vital Signs x48h Temp Pulse Resp BP Pulse Ox 10/13/20 22:00 73 18 173/70 H 99 10/13/20 20:07 76 18 99 10/13/20 17:13 36.6 C 73 14 116/53 L 99 - Physical Exam General Appearance: positive: Mild distress, Lethargic Eyes Bilateral: positive: Normal inspection, Conjunctivae nml ENT: positive: Dry mucous membranes. negative: No signs of dehydration Neck: positive: Nml inspection Respiratory: positive: No respiratory distress. negative: Wheezes, Rales Cardiovascular: positive: Irregularly irregular, Extrasystoles, Systolic murmur. negative: No murmur Abdomen: positive: Non-tender, No distention. negative: Tenderness, Guarding, R ebound Skin: positive: Other (There is a necrotic ulcer over the heel. He has erythema extending from the dorsum of the foot up to his lower dyer. This is warm to touch and tender to palpation.) Extremities: positive: Pedal edema (+2 pitting edema in the bilateral lower extremities.) Conclusion/Plan - Diagnosis Diagnosis: 1) Sepsis. 2) Necrotizing fasciitis of left lower extremity. 3) Type 2 diabetes mellitus with hyperglycemia. 4) CKD Stage III. 5) Hyponatremia. 6) Atrial fibrillation. 7) Cardiac Murmur - Plan Plan: He is obviously septic from necrotizing fasciitis of the left lower extremity. The initial plan was to transfer the patient to a higher level of care immediately for the emergency department. Unfortunately due to lack of bed availability, this was not feasible and so he was admitted here briefly. He was taken to the OR with general surgery and he was found to have necrotic tissue over the medial aspect of his left lower extremity below the calf down to his heel. He had already received meropenem, vancomycin, clindamycin. He is hemodynamically stable and not requiring vasopressors. He does remain intu bated. I spoke with the critical care surgery attending at [facility] regarding transfer. After discussion, they have accepted him in transfer tonight. I did speak with the patient's son, Shadi, to update him on his father's condition and the need for transfer. Shadi was agreeable to this. With regards to his other medical comorbidities, his renal function is at baseline. He was found to be quite hyperglycemic with a blood glucose greater than 700. He was started on insulin drip and he will remain on this while he is transferred to [place]. His corrected sodium given the hyperglycemia was about 128. He was hydrated with normal saline during his hospitalization. His tribulation appears to be new but he is rate controlled. He does have a murmur on exam and an echocardiogram is recommended. We are grateful for Dr. Stuart of the surgery service at [facility] for accepting this patient in transfer. He is transferred in a critical but stable condition. - Lab Results Lab results reviewed: Yes Fish Bones: 10/13/20 18:42 10/13/20 18:42 - Diagnostic Imaging Results Diagnostic Imaging Results: positive: Final report reviewed
[2020-10-14] MEDS: NS W/20 MEQ KCL 1,000 ML IV SCH (00:19)
[2020-10-14] MEDS ORDERED: CLINDAMYCIN 900 MG/50 ML 50 ML IV SCH (00:40)
[2020-10-14] MEDS ORDERED: HYDROmorphone 2 MG/ML VIAL IVP PRN (00:48)
[2020-10-14] MEDS ORDERED: SODIUM CHLORIDE FLUSH 0.9% 10 ML SYRINGE IVP SCH ×2 (01:00)
[2020-10-14] MEDS ORDERED: LACTATED RINGERS 1,000 ML IV ONE (01:02)
[2020-10-14 01:23] LABS: LACTIC ACID, VENOUS 2.5 mmol/L (0.5-2.2)
[2020-10-14 02:03] VITALS: BP 90/48
--- NOTE | 2020-10-14 05:19 | ANESTHESIA POST OP EVALUATION ---
Anesthesia Post Eval - Post Anesthesia Eval Vitals: Last Vital Signs Temp 36.8 C 10/14/20 01:00 Pulse 65 10/14/20 01:40 Resp 10 L 10/14/20 01:40 BP 90/48 L 10/14/20 01:31 Pulse Ox 100 10/14/20 00:00 CV Function Including HR & BP: Stable Pain Control: Satisfactory Nausea & Vomiting: Negative Mental Status: Other (sedated and intubated) Respiratory Status: Other (intubated on vent by RT) Hydration Status: Satisfactory Anesthesia Complications: None - Other Details/Therapies Other Details/Therapies: insulin drip with BG trending down, patient to be transferred via air ambulance to tertiary care facility. Left in Hospitalist's care intubated and sedated while awaiting transport tonight. Dr. Piper making arrangements.
[2020-10-14] MEDS ORDERED: HEPARIN 5,000 UNIT/ML VIAL SUBQ SCH (09:00)
== END 2020-10-14 01:45 | disposition short-term general hospital (02) | DRG 853 ==
LOC: ED 16:52 → ICU 21:38 → UNDOADMIN 21:38
PROVIDERS: ADMIT Internal Medicine; ATTEND Internal Medicine
PROC: 0JBP0ZZ Excision of Left Lower Leg Subcutaneous Tissue and Fascia, Open Approach (ICD-10-PCS; 2020-10-13)
PROC: 02HV33Z Insertion of Infusion Device into Superior Vena Cava, Percutaneous Approach (ICD-10-PCS; 2020-10-13)
PROC: 0JBR0ZZ Excision of Left Foot Subcutaneous Tissue and Fascia, Open Approach (ICD-10-PCS; principal; 2020-10-13 22:30)
DX: A41.9 Sepsis, unspecified organism (principal); M72.6 Necrotizing fasciitis; E87.1 Hypo-osmolality and hyponatremia; E11.52 Type 2 diabetes mellitus with diabetic peripheral angiopathy with gangrene; H33.21 Serous retinal detachment, right eye; Z20.822 Contact with and (suspected) exposure to COVID-19; L97.428 Non-pressure chronic ulcer of left heel and midfoot with other specified severity; E11.65 Type 2 diabetes mellitus with hyperglycemia; E11.22 Type 2 diabetes mellitus with diabetic chronic kidney disease; N18.30 Chronic kidney disease, stage 3 unspecified; I48.91 Unspecified atrial fibrillation; R01.1 Cardiac murmur, unspecified; E11.42 Type 2 diabetes mellitus with diabetic polyneuropathy; I12.9 Hypertensive chronic kidney disease with stage 1 through stage 4 chronic kidney disease, or unspecified chronic kidney disease; H54.7 Unspecified visual loss; E66.3 Overweight; Z68.27 Body mass index [BMI] 27.0-27.9, adult; G51.0 Bell's palsy; E87.8 Other disorders of electrolyte and fluid balance, not elsewhere classified; E11.621 Type 2 diabetes mellitus with foot ulcer
CPT/HCPCS: 36415; 36556; 71045; 73620; 80053; 82009; 83605; 85025; 85651; 86140; 87040; 87070; 87076; 87077; 87150; 87181; 87185; 87205; 87631; 94002; 94003; 99285; 99291; 99292; A9270; J1815; J2185; J3370; 0202U; 80048; 81599; 87075

== ENCOUNTER 2020-10-14 11:19 | Outpatient (CLI) | payer MEDICARE, OTHER | END 2020-10-14 23:59 | disposition short-term general hospital (02) | LOC: CANPRECLI → EMS 11:19 | PROVIDERS: ATTEND Internal Medicine | DX: A41.9 Sepsis, unspecified organism (principal); M72.6 Necrotizing fasciitis ==